=== PATIENT | male | born 1995 | race Caucasian/White ===

== ENCOUNTER 2018-11-18 12:09 | Emergency (ER) | payer OTHER | END 2018-11-18 13:25 | disposition home or self-care (01) | LOC: JERFT 12:09 ==

== ENCOUNTER 2018-12-23 09:12 | Emergency (ER) | payer OTHER ==
[2018-12-23 09:26] VITALS: BP 116/72; PULSE 75; TEMP 97.9; BMI 29.8
[2018-12-23] MEDS ORDERED: METHOCARBAMOL 500 MG TABLET PO ONE (09:40)
[2018-12-23] MEDS ORDERED: KETOROLAC TROMETHAMINE 60 MG/2 ML VIAL IM ONE (09:40)
--- NOTE | 2018-12-23 10:05 | PDOC ---
History of Present Illness - General Chief Complaint: Pain, Acute Stated Complaint: PAIN Time Seen by Provider: 12/23/18 09:32 History Source: Patient Exam Limitations: Clinical Condition - History of Present Illness Initial Comments: 12/23/18 10:00 Patient with no significant past medical history present with complaint of persistent left-sided neck pain and posterior left shoulder pain for 3 weeks now. Patient was seen for same symptoms and a month ago and discharged home on cyclobenzaprine and ibuprofen which patient reported helped with the pain but started again. Patient works as a construction millwright. Patient did not follow- up of the ED visit. Denies weakness in arm, headache, dizziness. Denies any other symptoms Timing/Duration: other (3 weeks) Past History - Past Medical History Allergies/Adverse Reactions: Allergies Allergy/AdvReac Type Severity Reaction Status Date / Time No Known Allergies Allergy Verified 12/23/18 09:26 Home Medications: Ambulatory Orders Cyclobenzaprine HCl [Flexeril -] 10 mg PO HS #10 tablet 11/18/18 Ibuprofen 800 mg PO TID #30 tablet 11/18/18 Methocarbamol [Robaxin -] 500 mg PO TID #21 tablet 12/23/18 Naproxen 500 mg PO BID PRN #20 tablet 12/23/18 Cardiac Disorders: Yes (pericardia window) COPD: No Other medical history: puncture lung - Suicide/Smoking/Psychosocial Hx Smoking History: Never smoked Information on smoking cessation initiated: No Hx Alcohol Use: No Drug/Substance Use Hx: No Review of Systems - Review of Systems Able to Perform ROS?: Yes Is the patient limited Beninese proficient: No Constitutional: No: Malaise, Weakness HEENTM: No: Symptoms Reported Respiratory: No: Symptoms reported Cardiac (ROS): No: Symptoms Reported ABD/GI: No: Nausea, Vomiting Musculoskeletal: Yes: Symptoms Reported, See HPI, Muscle Pain (posterior left shoulder), Neck Pain (left side neck). No: Joint Stiffness Neurological: No: Headache, Numbness, Paresthesia, Dizziness All Other Systems: Reviewed and Negative *Physical Exam - Vital Signs Last Vital Signs Temp Pulse Resp BP Pulse Ox 97.9 F 75 19 116/72 100 12/23/18 09:24 12/23/18 09:24 12/23/18 09:24 12/23/18 09:24 12/23/18 09:24 - Physical Exam Comments: 12/23/18 10:03 GENERAL: Well developed, well nourished. Awake and alert in mild acute distress. CARDIOVASCULAR: Regular rate and rhythm. No murmurs, rubs, or gallops. PULMONARY: No evidence of respiratory distress. MUSCULOSKELETAL : mild tenderness over posterior paravertebral muscle of cervical spine or C2-C7 on left side and trapezius muscle of left shoulder. Free range of motion of cervical spine. No bony deformities SKIN: Warm and dry. Normal capillary refill. NEUROLOGICAL: Alert, awake, appropriate. No motor deficits in the lower extremities. Gait is normal without ataxia. PSYCHIATRIC: Cooperative. Good eye contact. Appropriate mood and affect. General Appearance: Yes: Nourished, Appropriately Dressed, Mild Distress ED Treatment Course - RADIOLOGY Radiology Studies Ordered: Category Date Time Status SHOULDER-LEFT [RAD] Stat Radiology 12/23/18 09:41 Ordered SPINE-CERVICAL [RAD] Stat Radiology 12/23/18 09:40 Ordered Medical Decision Making - Medical Decision Making 12/23/18 10:01 Patient with no significant past medical history present with complaint of persistent left-sided neck pain and posterior left shoulder pain for 3 weeks now. Patient was seen for same symptoms and a month ago and discharged home on cyclobenzaprine and ibuprofen which patient reported helped with the pain but started again. Patient works as a construction millwright. Patient did not follow- up of the ED visit. Denies weakness in arm, headache, dizziness. Denies any other symptoms Clinical exam significant for mild tenderness to left paracervical muscle C2-6 C7 and trapezius muscle of posterior left shoulder. Otherwise normal exam. Symptoms likely neck and shoulder strain from construction work. Toradol 60 mg IM and Robaxin 5 mg by mouth ordered for pain and spasm. X-ray of cervical spine and left shoulder ordered to rule out acute pathology. Patient be discharged home on naproxen and Robaxin if negative x-ray with orthopedics follow-up 12/23/18 11:09 x-ray is negative. Patient stable for discharge *DC/Admit/Observation/Transfer Diagnosis at time of Disposition: Neck pain Neck muscle strain Qualifiers: Encounter type: initial encounter Qualified Code(s): S16.1XXA - Strain of muscle, fascia and tendon at neck level, initial encounter - Discharge Dispostion Disposition: HOME Condition at time of disposition: Stable Decision to Admit order: No - Prescriptions Prescriptions: Methocarbamol [Robaxin -] 500 mg PO TID #21 tablet Naproxen 500 mg PO BID PRN #20 tablet PRN Reason: pain - Referrals Referrals: Sav Lucas MD, [facility] [Staff Physician] - - Patient Instructions Printed Discharge Instructions: Muscle Strain, DI for Cervical Muscle Strain Additional Instructions: Your x-ray of the neck and shoulder was normal. The symptoms likely caused by muscle strain. Take prescribed medication for pain and spasm. Apply hot compresses to neck 2-3 times a day for 5-10 minutes as needed for pain. Follow-up referred orthopedics if no improvement in 4 days. - Post Discharge Activity
[2018-12-23] MEDS ORDERED: KETOROLAC TROMETHAMINE 60 MG/2 ML VIAL ONE (10:13)
== END 2018-12-23 10:35 | disposition home or self-care (01) ==
LOC: JERFT 09:12
PROC: 3E0233Z Introduction of Anti-inflammatory into Muscle, Percutaneous Approach (ICD-10-PCS; principal; 2018-12-23)
DX: S16.1XXA Strain of muscle, fascia and tendon at neck level, initial encounter (principal); X58.XXXA Exposure to other specified factors, initial encounter; Y93.89 Activity, other specified; Y92.89 Other specified places as the place of occurrence of the external cause; Y99.8 Other external cause status
CPT/HCPCS: 72050-TC-FY; 73030-TC-LT-FY; 99282-25